=== PATIENT | female | born 1995 | race Caucasian/White ===

== ENCOUNTER 2023-08-01 15:26 | Emergency (ER) | payer SELFPAY ==
[2023-08-01 15:50] VITALS: BP 122/79; PULSE 68; RESP 18; TEMP 98.2; BMI 24.1
[2023-08-01] MEDS ORDERED: METOCLOPRAMIDE HCL INJECTION 10 MG/2 ML VIAL IVPUSH ONE (16:09)
[2023-08-01] MEDS ORDERED: SODIUM CHLORIDE 0.9% 500 ML INFUS.BAG IV ONE (16:09)
[2023-08-01] MEDS ORDERED: ACETAMINOPHEN 1000 MG/100 ML BAG IVPB ONE (16:09)
[2023-08-01] MEDS ORDERED: PROCHLORPERAZINE MALEATE 5 MG TABLET PO ONE (17:04)
[2023-08-01] MEDS ORDERED: diphenhydrAMINE HCL 25 MG CAPSULE (FP) PO ONE ×2 (17:07→17:49)
[2023-08-01] MEDS ORDERED: PROCHLORPERAZINE MALEATE 5 MG TABLET ONE (17:45)
[2023-08-01 18:29] LABS: BASO % 0.3 % (0-2.0); EOS % 0.4 % (0-4.5); HEMATOCRIT 42.8 % (32.4-45.2); HEMOGLOBIN 14.3 GM/dL (10.7-15.3); LYMPH % 18.5 % (8-40); MCH 29.5 pg (25.7-33.7); MCHC 33.3 g/dl (32.0-36.0); MEAN CELL VOLUME 88.7 fl (80-96); MEAN PLT VOLUME 6.9 fl (7.5-11.1); MONO % 5.2 % (3.8-10.2); NEUT % 75.6 % (42.8-82.8); PLATELET COUNT 368 10^3/uL (134-434); RBC 4.83 M/mm3 (3.60-5.2); RDW 13.6 % (11.6-15.6); WHITE BLOOD COUNT 11.8 K/mm3 (4.0-10.0)
[2023-08-01 18:36] LABS: INR 1.05 (0.83-1.09); PROTHROMBIN TIME (PATIENT) 12.2 SEC (9.7-13.0)
[2023-08-01 18:39] LABS: ACTIVATED PTT 38.3 SECONDS (25.2-36.5)
[2023-08-01 18:44] LABS: POTASSIUM 3.9 mmol/L (3.5-5.1)
[2023-08-01 18:45] LABS: CALCIUM 9.7 mg/dL (8.5-10.1)
[2023-08-01 18:46] LABS: ALBUMIN 4.1 g/dl (3.4-5.0); BLOOD UREA NITROGEN 10.2 mg/dL (7-18)
[2023-08-01 18:49] LABS: CREATININE 0.7 mg/dL (0.55-1.3)
[2023-08-01 18:50] LABS: TOT PROT 7.5 g/dl (6.4-8.2)
[2023-08-01 18:51] LABS: BILIRUBIN,TOTAL 0.4 mg/dL (0.2-1)
== END 2023-08-01 20:02 | disposition home or self-care (01) ==
LOC: JER 15:26
DX: R51.9 Headache, unspecified (principal); R11.2 Nausea with vomiting, unspecified
CPT/HCPCS: 36415; 70450-TC; 80053; 84703; 85025; 85610; 85730; 99284-25